=== PATIENT | female | born 1935 | race Caucasian/White ===

== ENCOUNTER 2016-05-13 11:55 | Emergency (ER) | payer OTHER, MEDICARE ==
[2016-05-13 12:23] VITALS: BP 145/49
--- NOTE | 2016-05-13 12:54 | UC ---
Cardiac HPI - HPI Summary HPI Summary: CHEST PAIN X 3 DAYS, PAIN IS ON THE LEFT SIDE, NO RADIATION, INCREASE PAIN WITH MOVEMENT, BETTER WITH REST, NO SOB, NO COUGH, NO FEVER, NO CHILLS NO DIAPHORESIS - History of Current Complaint Chief Complaint: UCChestPain Stated Complaint: CHEST PAIN Time Seen by Provider: 05/13/16 11:56 Hx Obtained From: Patient Onset/Duration: Gradual Onset, Lasting Days - 3, Still Present Timing: Constant Initial Severity: Moderate Current Severity: Moderate Chest Pain Location: Left Anterior Character: Dull/Aching Aggravating: Exertion, Position, Movement Alleviating: Rest Associated Signs & Symptoms: Positive: Chest Pain. Negative: Vision Changes, Anxiety, Recent Stress, Headaches, Numbness, Tingling, Weakness, Dizziness, SOB , Swelling, Diaphoresis, Nausea/Vomiting, Cough - Allergy/Home Medications Allergies/Adverse Reactions: Allergies Allergy/AdvReac Type Severity Reaction Status Date / Time Sulfa Antibiotics Allergy See Comment Verified 05/13/16 12:23 Troleandomycin [From Harry] Allergy Hives Verified 05/13/16 12:23 PMH/Surg Hx/FS Hx/Imm Hx Endocrine History Of: Denies: Diabetes, Thyroid Disease Cardiovascular History Of: Reports: Cardiac Disorders - 3 stents Denies: Hypertension Respiratory History Of: Denies: COPD, Asthma GI/ History Of: Denies: Ulcer - Surgical History Surgical History: Yes Surgery Procedure, Year, and Place: cataract, broken hip 2014, cardiac - Family History Known Family History: Positive: Hypertension Negative: Diabetes - Social History Alcohol Use: None Substance Use Type: None Smoking Status (MU): Never Smoked Tobacco Review of Systems Constitutional: Negative Skin: Negative Eyes: Negative ENT: Negative Respiratory: Negative Cardiovascular: Chest Pain Gastrointestinal: Negative All Other Systems Reviewed And Are Negative: Yes Physical Exam Triage Information Reviewed: Yes Appearance: Well-Appearing, No Pain Distress, Well-Nourished Vital Signs: Initial Vital Signs Temp 100.4 F 05/13/16 12:12 Pulse 57 05/13/16 12:12 Resp 24 05/13/16 12:12 BP 145/49 05/13/16 12:12 Pulse Ox 100 05/13/16 12:12 Vital Signs Reviewed: Yes Eye Exam: Normal Eyes: Positive: Conjunctiva Clear ENT: Positive: Normal ENT inspection, Hearing grossly normal, Pharynx normal Neck exam: Normal Neck: Positive: Supple, Nontender, No Lymphadenopathy Respiratory: Positive: Lungs clear, Normal breath sounds, No respiratory distress, No accessory muscle use Cardiovascular: Positive: RRR, No Murmur, Other: - + CHEST TENDERNESS ANTERIOR CHEST WALL INCRASE PAIN WITH TWISTING - Clinical Impression Provider Diagnoses: COSTOCHONDRITIS Discharge - Discharge Plan Condition: Stable Disposition: HOME Patient Education Materials: Costochondritis (ED) Referrals: Aditi HERRERA,Lanre Lagunas [Primary Care Provider] - 3 Days Additional Instructions: PLEASE GO TO THE EMERGENCY DEPARTMENT IF YOU HAVE CHEST PAIN AT ANYTIME
== END 2016-05-13 12:55 | disposition home or self-care (01) ==
LOC: UCCORT 11:55
DX: M94.0 Chondrocostal junction syndrome [Tietze] (principal); Z98.61 Coronary angioplasty status; Z98.49 Cataract extraction status, unspecified eye; Z88.1 Allergy status to other antibiotic agents; Z88.2 Allergy status to sulfonamides
CPT/HCPCS: 93005; 99212; G0463

== ENCOUNTER 2016-12-23 15:49 | Emergency (ER) | payer MEDICARE, OTHER ==
[2016-12-23 16:43] VITALS: BP 136/54
--- NOTE | 2016-12-23 16:54 | UC ---
Complaint Female HPI - HPI Summary HPI Summary: URINARY FREQUENCY AND BURNING X 1 DAY NO FEVER, NO CHILLS, NO FLANK PAIN - History Of Current Complaint Chief Complaint: UCGU Stated Complaint: URINARY Time Seen by Provider: 12/23/16 16:49 Hx Obtained From: Patient Hx Last Menstrual Period: n/a ?: No Onset/Duration: Gradual Onset, Lasting Days - 2, Still Present Timing: Constant Severity Initially: Moderate Severity Currently: Moderate Character: Burning Aggravating Factor(s): Urination Alleviating Factor(s): Nothing Associated Signs And Symptoms: Negative: Fever, Back Pain, Vaginal Bleeding/ Discharge, Vaginal Discharge, Nausea, Vomiting(# Of Episodes =), Genital Swelling, Genital Blisters, Retained Foregin Body (Specify) Related Hx: Similar Episode/Dx as: - UTIS - Allergies/Home Medications Allergies/Adverse Reactions: Allergies Allergy/AdvReac Type Severity Reaction Status Date / Time Sulfa Antibiotics Allergy See Comment Verified 05/13/16 12:23 Troleandomycin [From Harry] Allergy Hives Verified 05/13/16 12:23 PMH/Surg Hx/FS Hx/Imm Hx Cardiovascular History: Cardiac Disease - Surgical History Surgical History: Yes Surgery Procedure, Year, and Place: cataract, broken hip 2014, cardiac - Family History Known Family History: Positive: Hypertension Negative: Diabetes - Social History Alcohol Use: None Substance Use Type: None Smoking Status (MU): Never Smoked Tobacco - Immunization History Most Recent Influenza Vaccination: no Review of Systems Constitutional: Negative Skin: Negative Eyes: Negative ENT: Negative Respiratory: Negative Genitourinary: Dysuria, Frequency, Urgency Is Patient Immunocompromised?: No All Other Systems Reviewed And Are Negative: Yes Physical Exam Triage Information Reviewed: Yes Appearance: Well-Appearing, No Pain Distress, Well-Nourished Vital Signs: Initial Vital Signs Temp 98.5 F 12/23/16 16:37 Pulse 66 12/23/16 16:37 Resp 17 12/23/16 16:37 BP 136/54 12/23/16 16:37 Pulse Ox 97 12/23/16 16:37 Vital Signs Reviewed: Yes Eyes: Positive: Conjunctiva Clear ENT: Positive: Normal ENT inspection, Hearing grossly normal, Pharynx normal Neck exam: Normal Neck: Positive: Supple, Nontender, No Lymphadenopathy Respiratory: Positive: Chest non-tender, Lungs clear, Normal breath sounds Cardiovascular Exam: Normal Cardiovascular: Positive: RRR, No Murmur, Pulses Normal Abdomen Description: Positive: Nontender, Soft. Negative: CVA Tenderness (R), CVA Tenderness (L), Distended, Guarding Bowel Sounds: Positive: Present Skin Exam: Normal Complaint Female Dx - Differential Dx/Diagnosis Provider Diagnoses: UTI Discharge - Discharge Plan Condition: Stable Disposition: HOME Prescriptions: Ciprofloxacin HCl [Cipro 250 MG TAB] 250 mg PO BID #14 tab Patient Education Materials: Urinary Traction Infection in Older Adults (ED) Referrals: Aditi HERRERA,Lanre ACa [Primary Care Provider] - 7 Days
== END 2016-12-23 17:27 | disposition home or self-care (01) ==
LOC: UCCORT 15:49
DX: N39.0 Urinary tract infection, site not specified (principal); Z88.2 Allergy status to sulfonamides; I51.9 Heart disease, unspecified; Z98.49 Cataract extraction status, unspecified eye
CPT/HCPCS: 81003; 87086; 99212; G0463

== ENCOUNTER 2017-03-17 14:06 | Emergency (ER) | payer MEDICARE, OTHER ==
[2017-03-17 14:38] VITALS: BP 144/51
--- NOTE | 2017-03-17 15:18 | UC ---
Lower Extremity/Ankle HPI - HPI Summary HPI Summary: 81 y/o female presents to the urgent care c/o left ankle pain s/p stepping in the wrong way on her front stairs and twisting her ankle about 3 days ago. Pt states pain is dull, 2/10 at rest and sharp 8/10 with movement. Associated with mild swelling in the lateral malleolus She can bear weight. Pt denies numbness or tingling, SOB, chest pain, abdominal pain, N/V/D. - History of Current Complaint Chief Complaint: UCLowerExtremity Stated Complaint: LEFT ANKLE INJURY Time Seen by Provider: 03/17/17 15:10 Hx Obtained From: Patient ?: No Onset/Duration: Sudden Onset, Lasting Days - 3 days, Still Present Severity Initially: Mild Severity Currently: Moderate Pain Intensity: 8 - w/ movement Pain Scale Used: 0-10 Numeric Aggravating Factor(s): Ambulation Alleviating Factor(s): Rest Able to Bear Weight: Yes - Risk Factors Gout Risk Factors: Negative, Age Over 40, Hypertension, Hyperlipidemia DVT Risk Factors: Negative Septic Arthritis Risk Factor: Negative - Allergies/Home Medications Allergies/Adverse Reactions: Allergies Allergy/AdvReac Type Severity Reaction Status Date / Time Sulfa Antibiotics Allergy See Comment Verified 05/13/16 12:23 Troleandomycin [From Harry] Allergy Hives Verified 05/13/16 12:23 Home Medications: Home Medications Aspirin [Aspirin 81 MG TAB] 03/17/17 [History] Atenolol TAB* [Tenormin TAB* 50 MG] 50 mg PO DAILY 03/17/17 [History Confirmed 03/17/17] Calcium/Vitamin D TAB 250/125* [Oscal D TAB 250/125*] 03/17/17 [History] Cholecalciferol [Vitamin D3] 2,000 unit PO 03/17/17 [History] Hydrochlorothiazide TAB* [Hydrodiuril TAB*] 25 mg PO DAILY 03/17/17 [History Confirmed 03/17/17] Levothyroxine TAB* [Synthroid 25 MCG TAB*] 03/17/17 [History] Losartan TAB* [Cozaar TAB*] 25 mg PO DAILY 03/17/17 [History Confirmed 03/17/17] Nitroglycerin [Nitro-Dur] 03/17/17 [History Confirmed 03/17/17] Omeprazole CAP* [Prilosec CAP* 20 MG] 03/17/17 [History] Simvastatin (NF) [Zocor (NF)] 80 mg PO 1700 03/17/17 [History Confirmed 03/17/17 ] PMH/Surg Hx/FS Hx/Imm Hx Previously Healthy: Yes Endocrine History: Hypothyroidism, Dyslipidemia Cardiovascular History: Cardiac Disease, Hypertension - Surgical History Surgical History: Yes Surgery Procedure, Year, and Place: HIP FX, NOSE FX. CATARACTS BILAT, APPY, HYSTERECTOMY - Family History Known Family History: Positive: Cardiac Disease, Hypertension - Social History Occupation: Retired Lives: With Family Alcohol Use: None Substance Use Type: None Smoking Status (MU): Never Smoked Tobacco - Immunization History Most Recent Influenza Vaccination: NOT CURRENT Most Recent Pneumonia Vaccination: 2016 Review of Systems Constitutional: Negative Skin: Negative Eyes: Negative, Diplopia ENT: Negative Respiratory: Negative Cardiovascular: Negative Gastrointestinal: Negative Genitourinary: Negative Motor: Decreased ROM - left ankle Musculoskeletal: Decreased ROM, Other: - Left ankle pain Neurological: Negative Psychological: Negative Is Patient Immunocompromised?: No All Other Systems Reviewed And Are Negative: Yes Physical Exam Triage Information Reviewed: Yes Vital Signs: Initial Vital Signs Temp 97.2 F 03/17/17 14:33 Pulse 65 03/17/17 14:33 Resp 16 03/17/17 14:33 BP 144/51 03/17/17 14:33 Pulse Ox 98 03/17/17 14:33 - Additional Comments Vital Signs Reviewed: Yes General: well developed, well nourished thin old female, sitting in the examining table w/o any apparent distress, Pt wears a cane Eyes: Positive: Conjunctiva Clear - PERRLA, EOMI, ENT: Positive: Normal ENT inspection, Hearing grossly normal, Pharynx normal, TMs normal Neck: Positive: Supple, Nontender, No Lymphadenopathy Respiratory: Positive: Chest non-tender, Lungs clear, Normal breath sounds, No respiratory distress Cardiovascular: Positive: RRR, No Murmur, Pulses Normal, Brisk Capillary Refill Abdomen Description: Positive: Nontender, No Organomegaly, Soft. Negative: CVA Tenderness (R), CVA Tenderness (L) Bowel Sounds: Positive: Present Musculoskeletal: - Ankle: Pt is able to bear weight and ambulate w/ limping.and help of a cane The L ankle is without obvious asymmetry or deformity when compared to the R ankle. Decreased ROM due to pain. Moderate swelling at the lateral malleolus, with tenderness to palpation. No ecchymosis or bruising observed. No Tenderness to palpation over the medial malleolus , no swelling observed. Point tenderness over the heel. Talar tilt test is negative for ligament laxity to valgus or varus stress. Negative anterior drawer. Peroneal nerve is intact with strong eversion and plantar flexion. Positive sensation over the LF foot and LF ankle, positive pulses, capillary refill intact Neurological Exam: Normal Psychological Exam: Normal Skin: warm and dry Lower Extremity Course/Dx - Course Course Of Treatment: 81 y/o female presents to the urgent care c/o left ankle pain s/p stepping in the wrong way on her front stairs and twisting her ankle about 3 days ago. Pt states pain is dull, 2/10 at rest and sharp 8/10 with movement. Associated with mild swelling in the lateral maleollus. She can bear weight. Pt denies numbness or tingling, SOB, chest pain, abdominal pain, N/V/D. Hx obtained.Rt ankle X-ray ordered, Mild to moderate osteoarthritis of talotibial joint. Pt most likely with a RT ankle Sprain. Pt immobilized with gel ankle splint and bulmaro bandage.Pt has a walker at home to avoid weight bearing , Rx tylenol PO to decrease swelling and pain. Pt advised RICE, take Tylenol PO for pain and to f/u with PCP on orthopedic Dr Hicks in 1 week if not improvement of symptoms for further treatment. Pt understood and agreed and left the clinic in a wheelchair, hemodynamically stable , A&OX3. - Differential Dx/Diagnosis Differential Diagnosis/HQI/PQRI: Arthritis, Fracture (Closed), Phlebitis, Sprain , Strain, Tendonitis Provider Diagnoses: 1- Left ankle pain s/p injury. 2- Left ankle osteoarthritis. 3- Left heel spurs. 4- Uncontrolled HTN Discharge - Discharge Plan Condition: Stable Disposition: HOME Prescriptions: Acetaminophen TAB* [Tylenol TAB*] 325 mg PO Q4H PRN #20 tab PRN Reason: Pain Patient Education Materials: Ankle Sprain (ED), Low Sodium Diet (ED) Referrals: [facility] [[facility]] - 1 Week Abdifatah Hicks MD [Medical Doctor] - 1 Week Additional Instructions: 1-Please take medications as directed to alleviate pain and swelling. 2-Please apply ice, keep your ankle immobilized with the gel splint. Avoid weight bearing using the walker at home 3- Please f/u with Orthopedic Dr Hicks or your PCP in 1 week is not improvement of symptoms for further evaluation and treatment. 4- Your BP is elevated today. please decrease salt in your diet, monitor BP and if it continues to be elevated please f/u with your PCP for further management
--- NOTE | 2017-03-17 15:39 | RAD ---
INDICATION: Left ankle injury COMPARISON: None TECHNIQUE: AP, lateral, and oblique views were obtained. FINDINGS: There are no acute bony findings. There is osteoarthritic change about the ankle mortise with joint space narrowing and marginal osteophyte formation. There are small heel spurs. Soft tissues are normal. IMPRESSION: MILD TO MODERATE OSTEOARTHRITIS TIBIOTALAR JOINT
== END 2017-03-17 16:17 | disposition home or self-care (01) ==
LOC: MERGE 14:06 → UCCORT 14:06
DX: M25.572 Pain in left ankle and joints of left foot (principal); M19.072 Primary osteoarthritis, left ankle and foot; M77.32 Calcaneal spur, left foot; I10 Essential (primary) hypertension; E03.9 Hypothyroidism, unspecified; E78.5 Hyperlipidemia, unspecified; Z79.82 Long term (current) use of aspirin; Z88.2 Allergy status to sulfonamides
CPT/HCPCS: 99203; G0463

== ENCOUNTER 2017-07-24 16:07 | Emergency (ER) | payer MEDICARE ==
[2017-07-24] MEDS ORDERED: Aspirin 81 mg CHEW TAB* 81 MG TAB.CHEW PO ONE (18:13)
[2017-07-24 18:47] VITALS: BP 148/60
--- NOTE | 2017-07-24 20:56 | UC ---
Meeta Pascual Gabriel, scribed for Veronica Urrutia MD on 07/24/17 at 1804 . Neck Pain HPI - HPI Summary HPI Summary: This patient is a 82 year old M presenting to [facility] with a chief complaint of right sided neck pain that began yesterday. She states today the pain began radiating into her right rib cage. The patient rates the pain 10/10 in severity. Symptoms aggravated by movement and deep breaths. She believes it may be due to sleeping on 3 pillows which she does to help her sinuses drain. She states she has had similar pain diagnosed as chest wall pain in the past. Not sure if this is the same. Present most of the time, aggravated by movement and deep breath. No rash. No sob. No recent fever / chills. - History of Current Complaint Chief Complaint: UCUpperExtremity Stated Complaint: NECK STRAIN Hx Obtained From: Patient Hx Last Menstrual Period: n/a ?: No Onset/Duration Of Injury/Symptoms: Days Mechanism Of Injury: No Known Trauma Timing: Constant Onset/Duration: Lasting Days, Still Present Severity: Severe Pain Intensity: 10 Pain Scale Used: 0-10 Numeric Location: Discrete At: - right side Aggravating Factors: Movement, Other: - deep breaths Associated Signs & Symptoms: Negative: Fever Related History: Similar Episode/Dx As: - chest wall pain - Allergies/Home Medications Allergies/Adverse Reactions: Allergies Allergy/AdvReac Type Severity Reaction Status Date / Time Sulfa (Sulfonamide Allergy See Comment Verified 07/24/17 19:32 Antibiotics) troleandomycin Allergy Hives Verified 07/24/17 19:32 PMH/Surg Hx/FS Hx/Imm Hx - Additional Past Medical History Additional PMH: hearing aids Cardiovascular History: Cardiac Disease - has 3 stents, Hypertension, Other Other Cardiovascular History: HLD - Surgical History Surgical History: Yes Surgery Procedure, Year, and Place: HIP FX, NOSE FX. CATARACTS BILAT, APPY, HYSTERECTOMY - Family History Known Family History: Positive: Cardiac Disease, Hypertension Negative: Diabetes - Social History Alcohol Use: None Substance Use Type: None Smoking Status (MU): Never Smoked Tobacco - Immunization History Most Recent Influenza Vaccination: NOT CURRENT Most Recent Pneumonia Vaccination: 2016 Review Of Systems Constitutional: Positive: Negative - fever Musculoskeletal: Positive: Other: - right sided neck pain that radiates into her ribs All Other Systems Reviewed And Are Negative: Yes Physical Exam Triage Information Reviewed: Yes Appearance: Well-Nourished - sitting up. Conversing easily and appropriately. Vital Signs: Initial Vital Signs Temp 97.9 F 07/24/17 16:30 Pulse 62 07/24/17 16:30 Resp 18 07/24/17 16:30 BP 144/45 07/24/17 16:30 Pulse Ox 97 07/24/17 16:30 Vital Signs Reviewed: Yes Eye Exam: Normal - grossly normal + arcus seniles ENT Exam: Normal Neck exam: Other - tender R lat neck, without point bony tenderness. + ax n. sensation present bilat Respiratory Exam: Other - Tender midsternum - radiates to R ant and lat chest. Also radiates to L ant chest. No crepitus, no rash visible or reported. Respiratory: Positive: Lungs clear, Normal breath sounds, No respiratory distress, No accessory muscle use Cardiovascular Exam: Normal - HR regular, correlates with radial pulse. + systolic M 1/6. Abdominal Exam: Normal Abdomen Description: Positive: Nontender Musculoskeletal Exam: Normal - BLE + venous insuff changes. No unilateral edema. Neurological Exam: Normal - grossly nonfocal. Psychological Exam: Normal - nondiaphoretic Skin Exam: Normal Diagnostics - EKG Cardiac Rate: NL - at 66 BPM Cardiac Rhythm: Sinus: Normal - MI 209, QTc of 453 , Other Rhythm: Normal - no significant change compared to 05/13/16 Neck Pain Course/Dx - Course Course Of Treatment: While indeed this could be musc / skel related, given the diffuse nature of the discomfort, absence of clear inciting injury or other issue, I can not clinically rule out a more serious problem (ex cardiac, pulmonary). Ms. Yi has a history of 3 stents, diagnoses prior to cardiac event. As such, she does not have a known hx of angina. Consider musc skel d/o , costochondritis, pleuritis, bronchitis, cardiac, other pulmonary. I recommend transfer to the ED for further evaluation and management. Ms. Yi carefully considered this, and after much consideration, she agrees to go to the ED. Does not want to go via EMS, despite offered and encouraged EMS. Did not take asa today, she was given 324mg po x 1 here in [facility]. Of note - Ms. Yi gave me verbal permission to speak with her daughter, Dorita Georges, if she calls. Questions as posed answered to the best of my ability. - Differential Dx/Diagnosis Provider Diagnoses: neck pain. chest pain - Physician Notification/Consults Discussed Patient Care With: Yogesh Neves Time Discussed With Above Provider: 18:44 Instructed by Provider To: Other - I informed JOSH Hassan of the patients case and informed him she will be being driving herself to the ED. Discharge - Sign-Out/Discharge Documenting (check all that apply): Discharge/Admit/Transfer - Discharge Plan Condition: Stable Disposition: ADMITTED TO [facility] Referrals: Non Staff,Doctor [Primary Care Provider] - Additional Instructions: Please go to the Emergency Department. Call [phone] en route if any problems. You received 324mg aspirin here. - Billing Disposition and Condition Condition: STABLE Disposition: [facility] [place] The documentation as recorded by the Meeta cartwright Gabriel accurately reflects the service I personally performed and the decisions made by me, Veronica Urrutia MD.
== END 2017-07-24 18:59 | disposition short-term general hospital (02) ==
LOC: UCEAST 16:07
DX: M54.2 Cervicalgia (principal); R07.89 Other chest pain; I10 Essential (primary) hypertension; Z95.5 Presence of coronary angioplasty implant and graft; E78.5 Hyperlipidemia, unspecified; Z88.1 Allergy status to other antibiotic agents; Z88.2 Allergy status to sulfonamides
CPT/HCPCS: 93005; 99212; A9270-GY; G0463

== ENCOUNTER 2017-07-24 19:17 | Observation (INO) | payer MEDICARE ==
[2017-07-24] MEDS ORDERED: Aspirin 81 mg CHEW TAB* 81 MG TAB.CHEW PO ONE (20:35)
[2017-07-24 20:51] LABS: ABS Basophils 0.1 10^3/ul (0-0.2); ABS Eosinophils 0.1 10^3/ul (0-0.6); ABS Lymphocytes 1.9 10^3/ul (1.0-4.8); ABS Monocytes 0.7 10^3/ul (0-0.8); ABS Neutrophils 7.6 10^3/ul (1.5-7.7); ABS Nucleated RBC 0 10^3/ul; Eosinophil % 1.2 % (0-6); Hematocrit 34 % (35-47); Hemoglobin 11.9 g/dl (12.0-16.0); Lymphocyte % 18.3 % (25-47); Mean Corpuscular HGB Conc 35 g/dl (31-36); Mean Corpuscular Hemoglobin 29 pg (27-31); Mean Corpuscular Volume 84 fL (80-97); Mean Platelet Volume 7.1 um3 (7.4-10.4); Nucleated Red Blood Cells % 0; Platelet Count 251 10^3/ul (150-450); Red Blood Count 4.06 10^6/ul (4.0-5.4); Red Cell Distribution Width 14 % (10.5-15); White Blood Count 10.4 10^3/ul (3.5-10.8)
[2017-07-24 20:57] LABS: INR 0.86 (0.77-1.02)
[2017-07-24 21:07] LABS: EGFR Non-African American 43.4 (>60)
--- NOTE | 2017-07-24 21:51 | RAD ---
Indication: Chest pain. Single frontal view of the chest performed at 2046 hours was reviewed. Comparison is made with previous exam dated June 08, 2008. No mediastinal shift is noted. Heart is of normal size and configuration. Lung mckinley appear clear. IMPRESSION: NO ACTIVE CARDIOPULMONARY DISEASE IS NOTED.
[2017-07-24] MEDS ORDERED: Ondansetron INJ* 2 MG/ML VIAL IV PRN (22:35)
[2017-07-24] MEDS ORDERED: Acetaminophen TAB* 325 MG PO PRN (22:35)
[2017-07-24] MEDS ORDERED: Morphine VIAL* 4 MG/ML VIAL (1 ml vial) IV PRN (22:35)
[2017-07-24] MEDS ORDERED: NS 0.9% 1000 ML* 1,000 ML IV SCH (22:45)
[2017-07-24] MEDS ORDERED: Ondansetron ODT TAB* 4 MG PO PRN (23:05)
--- NOTE | 2017-07-25 00:11 | HP ---
H&P (Free Text) History and Physical: PCP: Lilly Aburto NP Date/Time: 07/24/2017 2230 CC: chest pain HPI: Mrs Yi is an 82YO female HX CAD/stent x3, HTN, HLD, hypothyroidism, & GERD who presents reporting onset of continuous moderate sharp R inframammary pain radiating into the R neck, but not either upper extremity or the back. Pain is exacerbated by exertion and movement. There is no SOB, N/V, palpitations, light-headedness, cough, congestion, F/C, sweats, diarrhea, or other issues. She presented to [facility] where she received 324mg aspirin and was referred to [facility]. She was allowed to drive herself. PMedHx CAD/stent x3 HTN HLD hypothyroidism GERD Ambulatory Orders Aspirin EC TAB* [Ecotrin EC Low Dose 81 MG*] 81 mg PO DAILY 07/24/17 Atenolol TAB* [Tenormin TAB* 50 MG] 50 mg PO DAILY 07/24/17 Calcium/Vitamin D TAB 250/125* [Oscal D TAB 250/125*] 250 mg PO BID 07/24/17 Cholecalciferol TAB* [Vitamin D TAB*] 2,000 units PO DAILY 07/24/17 Cranberry Fruit [Cranberry] 400 mg PO DAILY 07/24/17 Hydrochlorothiazide TAB* [Hydrodiuril TAB*] 25 mg PO DAILY 07/24/17 Levothyroxine TAB* [Synthroid TAB*] 50 mcg PO DAILY 07/24/17 Losartan TAB* [Cozaar TAB*] 100 mg PO DAILY 07/24/17 Nitroglycerin TAB 0.4 MG* 0.4 mg SL Q5M PRN 07/24/17 Omeprazole CAP* [Prilosec CAP* 20 MG] 40 mg PO DAILY 07/24/17 Simvastatin (NF) [Zocor (NF)] 40 mg PO DAILY 07/24/17 amLODIPine TAB* [Norvasc 5 mg TAB*] 10 mg PO DAILY 07/24/17 Allergies Sulfa (Sulfonamide Antibiotics) Allergy (Verified 07/24/17 19:32) See Comment hyperventilates troleandomycin Allergy (Verified 07/24/17 19:32) Hives PSurgHx L EVAN 2nd FX EGD/C-scope 06/2017 appendectomy cataract extraction SocHx: no tobacco, alcohol, or recreational drugs; lives with her daughter; 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; 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 FamHx: son: SHEELA, Parkinsonism, DM2 ROS: as above, otherwise reviewed and all were negative vitals: Vital Signs Temp 36.6 C 07/24/17 23:17 Pulse 71 07/24/17 23:17 Resp 16 07/24/17 23:17 BP 137/66 07/24/17 23:17 Pulse Ox 97 07/24/17 23:17 Intake & Output 07/24/17 07/24/17 07/25/17 11:59 23:59 11:59 Weight 64.41 kg Constitutional: NAD, normally developed, well-nourished elderly white female HEENM: atraumatic; sclera/conjunctiva: anicteric/clear; hearing: clinically intact; oropharynx: clear, mucosa moist Neck: soft tissue: non-tender to palpation, no rash/erythema/warmth/induration; thyroid: non-tender, normal Pulmonary: clear to auscultation bilaterally, good aeration, no accessory muscle use CV: RR/RR, normal S1S2, no carotid bruit, no jugular venous distention, 2+ B DP/ PT, no edema Abdominal: soft, non-distended, non-tender, no rebound/guarding/rigidity, normoactive bowel sounds, no hepatosplenomegaly or masses, no costovertebral angle tenderness Musculoskeletal: general: grossly intact w/o tenderness to palpation Integumental: normal appearance and texture of exposed skin Psychiatric orientation: AA&O to PPS affect: calm mood: cooperative eye contact: good content: reliable responses: timely insight: good Testing: Lab Results 07/24/17 07/24/17 07/24/17 Range/Units 20:40 20:40 20:40 WBC 10.4 (3.5-10.8) 10^3/ul RBC 4.06 (4.0-5.4) 10^6/ul Hgb 11.9 L (12.0-16.0) g/dl Hct 34 L (35-47) % MCV 84 (80-97) fL MCH 29 (27-31) pg MCHC 35 (31-36) g/dl RDW 14 (10.5-15) % Plt Count 251 (150-450) 10^3/ul MPV 7.1 L (7.4-10.4) um3 Neut % (Auto) 72.7 (38-83) % Lymph % (Auto) 18.3 L (25-47) % [place] % (Auto) 7.0 (0-7) % Eos % (Auto) 1.2 (0-6) % Baso % (Auto) 0.8 (0-2) % Absolute Neuts (auto) 7.6 (1.5-7.7) 10^3/ul Absolute Lymphs (auto) 1.9 (1.0-4.8) 10^3/ul Absolute Monos (auto) 0.7 (0-0.8) 10^3/ul Absolute Eos (auto) 0.1 (0-0.6) 10^3/ul Absolute Basos (auto) 0.1 (0-0.2) 10^3/ul Absolute Nucleated RBC 0 10^3/ul Nucleated RBC % 0 INR (Anticoag Therapy) (0.77-1.02) Sodium 139 (139-145) mmol/L Potassium 3.4 L (3.5-5.0) mmol/L Chloride 102 (101-111) mmol/L Carbon Dioxide 27 (22-32) mmol/L Anion Gap 10 (2-11) mmol/L BUN 30 H (6-24) mg/dL Creatinine 1.19 H (0.51-0.95) mg/dL Est GFR ( Amer) 55.8 (>60) Est GFR (Non-Af Amer) 43.4 (>60) BUN/Creatinine Ratio 25.2 H (8-20) Glucose 123 H (70-100) mg/dL Lactic Acid (0.5-2.0) mmol/L Calcium 9.7 (8.6-10.3) mg/dL Total Bilirubin 0.30 (0.2-1.0) mg/dL AST 10 L (13-39) U/L ALT 9 (7-52) U/L Alkaline Phosphatase 84 (34-104) U/L Troponin I 0.01 (<0.04) ng/mL B-Natriuretic Peptide 39 ( - 100) pg/mL Total Protein 6.8 (6.4-8.9) g/dL Albumin 4.1 (3.2-5.2) g/dL Globulin 2.7 (2-4) g/dL Albumin/Globulin Ratio 1.5 (1-3) 07/24/17 07/24/17 Range/Units 20:40 20:40 WBC (3.5-10.8) 10^3/ul RBC (4.0-5.4) 10^6/ul Hgb (12.0-16.0) g/dl Hct (35-47) % MCV (80-97) fL MCH (27-31) pg MCHC (31-36) g/dl RDW (10.5-15) % Plt Count (150-450) 10^3/ul MPV (7.4-10.4) um3 Neut % (Auto) (38-83) % Lymph % (Auto) (25-47) % [place] % (Auto) (0-7) % Eos % (Auto) (0-6) % Baso % (Auto) (0-2) % Absolute Neuts (auto) (1.5-7.7) 10^3/ul Absolute Lymphs (auto) (1.0-4.8) 10^3/ul Absolute Monos (auto) (0-0.8) 10^3/ul Absolute Eos (auto) (0-0.6) 10^3/ul Absolute Basos (auto) (0-0.2) 10^3/ul Absolute Nucleated RBC 10^3/ul Nucleated RBC % INR (Anticoag Therapy) 0.86 (0.77-1.02) Sodium (139-145) mmol/L Potassium (3.5-5.0) mmol/L Chloride (101-111) mmol/L Carbon Dioxide (22-32) mmol/L Anion Gap (2-11) mmol/L BUN (6-24) mg/dL Creatinine (0.51-0.95) mg/dL Est GFR ( Amer) (>60) Est GFR (Non-Af Amer) (>60) BUN/Creatinine Ratio (8-20) Glucose (70-100) mg/dL Lactic Acid 1.0 (0.5-2.0) mmol/L Calcium (8.6-10.3) mg/dL Total Bilirubin (0.2-1.0) mg/dL AST (13-39) U/L ALT (7-52) U/L Alkaline Phosphatase (34-104) U/L Troponin I (<0.04) ng/mL B-Natriuretic Peptide ( - 100) pg/mL Total Protein (6.4-8.9) g/dL Albumin (3.2-5.2) g/dL Globulin (2-4) g/dL Albumin/Globulin Ratio (1-3) ECG, personally reviewed: NSR rate 66, mild ST depression V4-6 CXR, personally reviewed: IMPRESSION: NO ACTIVE CARDIOPULMONARY DISEASE IS NOTED. Impression: 82F HX CAD/stent x3, HTN, HLD, hypothyroidism, & GERD presenting with atypical chest pain for r/o ACS DIAGNOSIS & PLAN Primary chest pain for ACS : HX CAD/stent x3 : telemetry : trend troponin : supplemental oxygen : aspirin given at [facility] per report : consider cardiology consult pending above results : supportive care Secondary HTN : continue HCTZ, losartan, atenolol, & amlodipine HLD : continue simvastatin hypothyroidism : continue levothyroxine GERD omeprazole Admission Rational: observation for r/o ACS DVTp: heparin SQ Code Status: full HCP: daughter
[2017-07-25] MEDS: Heparin VIAL(*) 5000 UNITS/ML VIAL (FIVE THOUSAND) SUBCUT SCH ×2 (05:21→12:57)
[2017-07-25] MEDS ORDERED: Omeprazole CAP* 20 MG PO SCH ×2 (06:00→09:00)
[2017-07-25] MEDS ORDERED: Levothyroxine TAB* 50 MCG TAB PO SCH (06:00)
[2017-07-25 06:26] LABS: EGFR Non-African American 50.2 (>60)
[2017-07-25] MEDS ORDERED: Atenolol TAB* 50 MG PO SCH (09:00)
[2017-07-25] MEDS ORDERED: Aspirin EC TAB* 81 MG TAB.EC PO SCH ×2 (09:00)
[2017-07-25] MEDS ORDERED: Losartan TAB* 25 MG PO SCH (09:00)
[2017-07-25] MEDS ORDERED: Atorvastatin* 20 MG TAB PO SCH (09:00)
[2017-07-25] MEDS ORDERED: amLODIPine TAB* 5 MG PO SCH (09:00)
[2017-07-25] MEDS ORDERED: Hydrochlorothiazide TAB* 25 MG PO SCH (09:00)
[2017-07-25] MEDS ORDERED: Docusate CAP* 100 MG PO SCH (09:00)
--- NOTE | 2017-07-25 10:25 | ED ---
Anthony Pascual Angela, scribed for Reinaldo Velásquez on 07/24/17 at 2036 . HPI Chest Pain - HPI Summary HPI Summary: This pt is a 82 y/o female presenting to [facility] referred from [facility] c/o chest pain radiating to the right side of her neck and right side of her rib cage since yesterday. Pt reports that her pain is aggravated with exertion and movement. Denies rash, swelling in LE, SOB, nausea. Pt was given a full dose of aspirin at Urgent Care. Denies any hx of OK. PMHx includes 3 cardiac stents (last one in 2007), HTN, high cholesterol. - History of Current Complaint Chief Complaint: EDChestPainROMI Time Seen by Provider: 07/24/17 20:29 Hx Obtained From: Patient Hx Last Menstrual Period: n/a Onset/Duration: Started Days Ago - 2, Still Present Timing: Lasting Days - 2 Current Severity: Moderate Pain Intensity: 7 Pain Scale Used: 0-10 Numeric Chest Pain Location: Right Anterior Chest Pain Radiates: Yes Chest Pain Radiates To:: Neck - right sided, Other - right sided ribs Aggravating Factor(s): Exertion, Movement Alleviating Factor(s): Nothing Associated Signs and Symptoms: Positive: Chest Pain. Negative: Shortness of Breath, Fever, Chills, Nausea, Other: - rash - Allergy/Home Medications Allergies/Adverse Reactions: Allergies Allergy/AdvReac Type Severity Reaction Status Date / Time Sulfa (Sulfonamide Allergy See Comment Verified 07/24/17 19:32 Antibiotics) troleandomycin Allergy Hives Verified 07/24/17 19:32 Home Medications: Home Medications Aspirin EC TAB* [Ecotrin EC Low Dose 81 MG*] 81 mg PO DAILY 07/24/17 [History Confirmed 07/24/17] Atenolol TAB* [Tenormin TAB* 50 MG] 50 mg PO DAILY 07/24/17 [History Confirmed 07/24/17] Calcium/Vitamin D TAB 250/125* [Oscal D TAB 250/125*] 250 mg PO BID 07/24/17 [ History Confirmed 07/24/17] Cholecalciferol TAB* [Vitamin D TAB*] 2,000 units PO DAILY 07/24/17 [History Confirmed 07/24/17] Cranberry Fruit [Cranberry] 400 mg PO DAILY 07/24/17 [History Confirmed 07/24/17 ] Hydrochlorothiazide TAB* [Hydrodiuril TAB*] 25 mg PO DAILY 07/24/17 [History Confirmed 07/24/17] Levothyroxine TAB* [Synthroid TAB*] 50 mcg PO DAILY 07/24/17 [History Confirmed 07/24/17] Losartan TAB* [Cozaar TAB*] 100 mg PO DAILY 07/24/17 [History Confirmed 07/24/17 ] Nitroglycerin TAB 0.4 MG* 0.4 mg SL Q5M PRN 07/24/17 [History Confirmed 07/24/17 ] Omeprazole CAP* [Prilosec CAP* 20 MG] 40 mg PO DAILY 07/24/17 [History Confirmed 07/24/17] Simvastatin (NF) [Zocor (NF)] 40 mg PO DAILY 07/24/17 [History Confirmed ] amLODIPine TAB* [Norvasc 5 mg TAB*] 10 mg PO DAILY 07/24/17 [History Confirmed 07/24/17] PMH/Surg Hx/FS Hx/Imm Hx Endocrine/Hematology History: Denies: Hx Diabetes, Hx Thyroid Disease Cardiovascular History: Reports: Hx Hypertension Respiratory History: Denies: Hx Asthma, Hx Chronic Obstructive Pulmonary Disease (COPD) GI History: Denies: Hx Ulcer - Cancer History Cancer Type, Location and Year: areas of skin to face removed, benign - Surgical History Surgery Procedure, Year, and Place: HIP FX, NOSE FX. CATARACTS BILAT, APPY, HYSTERECTOMY Infectious Disease History: No Infectious Disease History: Denies: Hx Hepatitis, Hx Human Immunodeficiency Virus (HIV), History Other Infectious Disease, Traveled Outside the [place] in Last 30 Days - Family History Known Family History: Positive: Cardiac Disease, Hypertension Negative: Diabetes - Social History Alcohol Use: None Substance Use Type: Reports: None Smoking Status (MU): Never Smoked Tobacco Review of Systems Negative: Fever, Chills Positive: Chest Pain Negative: Shortness Of Breath Negative: Nausea Musculoskeletal: Other - right sided neck pain Negative: Edema - in LE Negative: Rash All Other Systems Reviewed And Are Negative: Yes Physical Exam - Summary Physical Exam Summary: Appearance: Well appearing, no pain distress Skin: warm, dry, reflects adequate perfusion Head/face: normal Eyes: EOMI, SUSANA ENT: normal Neck: supple, nontender Chest: Tenderness over the right chest Respiratory: CTA, breath sounds present Cardiovascular: RRR, pulses symmetrical Abdomen: nontender, soft Bowel: present Musculoskeletal: normal, strength/ROM intact Neuro: normal, sensory motor intact, A&Ox3 Triage Information Reviewed: Yes Vital Signs On Initial Exam: Initial Vitals Temp Pulse Resp BP Pulse Ox 97.0 F 66 16 135/53 97 07/24/17 19:25 07/24/17 19:25 07/24/17 19:25 07/24/17 19:25 07/24/17 19:25 Vital Signs Reviewed: Yes Diagnostics - Vital Signs Vital Signs Temp Pulse Resp BP Pulse Ox 07/24/17 20:31 63 18 164/78 07/24/17 20:05 21 164/78 07/24/17 20:04 21 07/24/17 19:25 97.0 F 66 16 135/53 97 - Laboratory Lab Results: Lab Results 07/24/17 07/24/17 07/24/17 Range/Units 20:40 20:40 20:40 WBC 10.4 (3.5-10.8) 10^3/ul RBC 4.06 (4.0-5.4) 10^6/ul Hgb 11.9 L (12.0-16.0) g/dl Hct 34 L (35-47) % MCV 84 (80-97) fL MCH 29 (27-31) pg MCHC 35 (31-36) g/dl RDW 14 (10.5-15) % Plt Count 251 (150-450) 10^3/ul MPV 7.1 L (7.4-10.4) um3 Neut % (Auto) 72.7 (38-83) % Lymph % (Auto) 18.3 L (25-47) % [place] % (Auto) 7.0 (0-7) % Eos % (Auto) 1.2 (0-6) % Baso % (Auto) 0.8 (0-2) % Absolute Neuts (auto) 7.6 (1.5-7.7) 10^3/ul Absolute Lymphs (auto) 1.9 (1.0-4.8) 10^3/ul Absolute Monos (auto) 0.7 (0-0.8) 10^3/ul Absolute Eos (auto) 0.1 (0-0.6) 10^3/ul Absolute Basos (auto) 0.1 (0-0.2) 10^3/ul Absolute Nucleated RBC 0 10^3/ul Nucleated RBC % 0 INR (Anticoag Therapy) (0.77-1.02) Sodium 139 (139-145) mmol/L Potassium 3.4 L (3.5-5.0) mmol/L Chloride 102 (101-111) mmol/L Carbon Dioxide 27 (22-32) mmol/L Anion Gap 10 (2-11) mmol/L BUN 30 H (6-24) mg/dL Creatinine 1.19 H (0.51-0.95) mg/dL Est GFR ( Amer) 55.8 (>60) Est GFR (Non-Af Amer) 43.4 (>60) BUN/Creatinine Ratio 25.2 H (8-20) Glucose 123 H (70-100) mg/dL Lactic Acid (0.5-2.0) mmol/L Calcium 9.7 (8.6-10.3) mg/dL Total Bilirubin 0.30 (0.2-1.0) mg/dL AST 10 L (13-39) U/L ALT 9 (7-52) U/L Alkaline Phosphatase 84 (34-104) U/L Troponin I 0.01 (<0.04) ng/mL B-Natriuretic Peptide 39 ( - 100) pg/mL Total Protein 6.8 (6.4-8.9) g/dL Albumin 4.1 (3.2-5.2) g/dL Globulin 2.7 (2-4) g/dL Albumin/Globulin Ratio 1.5 (1-3) 07/24/17 07/24/17 Range/Units 20:40 20:40 WBC (3.5-10.8) 10^3/ul RBC (4.0-5.4) 10^6/ul Hgb (12.0-16.0) g/dl Hct (35-47) % MCV (80-97) fL MCH (27-31) pg MCHC (31-36) g/dl RDW (10.5-15) % Plt Count (150-450) 10^3/ul MPV (7.4-10.4) um3 Neut % (Auto) (38-83) % Lymph % (Auto) (25-47) % [place] % (Auto) (0-7) % Eos % (Auto) (0-6) % Baso % (Auto) (0-2) % Absolute Neuts (auto) (1.5-7.7) 10^3/ul Absolute Lymphs (auto) (1.0-4.8) 10^3/ul Absolute Monos (auto) (0-0.8) 10^3/ul Absolute Eos (auto) (0-0.6) 10^3/ul Absolute Basos (auto) (0-0.2) 10^3/ul Absolute Nucleated RBC 10^3/ul Nucleated RBC % INR (Anticoag Therapy) 0.86 (0.77-1.02) Sodium (139-145) mmol/L Potassium (3.5-5.0) mmol/L Chloride (101-111) mmol/L Carbon Dioxide (22-32) mmol/L Anion Gap (2-11) mmol/L BUN (6-24) mg/dL Creatinine (0.51-0.95) mg/dL Est GFR ( Amer) (>60) Est GFR (Non-Af Amer) (>60) BUN/Creatinine Ratio (8-20) Glucose (70-100) mg/dL Lactic Acid 1.0 (0.5-2.0) mmol/L Calcium (8.6-10.3) mg/dL Total Bilirubin (0.2-1.0) mg/dL AST (13-39) U/L ALT (7-52) U/L Alkaline Phosphatase (34-104) U/L Troponin I (<0.04) ng/mL B-Natriuretic Peptide ( - 100) pg/mL Total Protein (6.4-8.9) g/dL Albumin (3.2-5.2) g/dL Globulin (2-4) g/dL Albumin/Globulin Ratio (1-3) Result Diagrams: 07/24/17 20:40 07/25/17 05:55 Lab Statement: Any lab studies that have been ordered have been reviewed, and results considered in the medical decision making process. - Radiology Chest XR Radiology Interpretation Completed By: Radiologist - pending official report, please see meditech. - EKG 19:28 Cardiac Rate: NL - at 65 bpm EKG Rhythm: Sinus Rhythm EKG Interpretation: No acute changes Re-Evaluation - Re-Evaluation First Eval Re-Evaluation Time: 21:34 Comment: I reviewed the lab and XR results with the pt. I discussed the admission plan with the pt. She understands and agrees. Chest Pain Course/Dx - Course Assessment/Plan: Pt is a 82 y/o female who presents with chest pain radiating to the right side of her neck and right side of her rib cage since yesterday. Pt was given one 324 mg aspirin at Urgent Care [facility]. Blood work, chest XR, EKG were obtained. I discussed pt care with Dr. Mack, hospitalist, who has agreed to admit the pt. Dx: chest pain, rule out OK. - Chest Pain Differential Diagnosis/HQI/PQRI: Acute OK, ACS, Angina, CHF, Chest Wall, Lower Respiratory Infection, Pulmonary Edema - Diagnoses Provider Diagnoses: Chest pain, Chest pain, rule out acute myocardial infarction - Provider Notifications Discussed Care Of Patient With: Helder Mack Time Discussed With Above Provider: 21:32 Instructed by Provider To: Other - I discussed pt care with Dr. Mack, hospitalist, who has agreed to admit the pt. Discharge - Sign-Out/Discharge Documenting (check all that apply): Discharge/Admit/Transfer - Admit to [facility] - Discharge Plan Condition: Stable Disposition: ADMITTED TO [facility] - Billing Disposition and Condition Condition: STABLE Disposition: [facility] The documentation as recorded by the Anthony cartwright Angela accurately reflects the service I personally performed and the decisions made by , Reinaldo Velásquez.
[2017-07-25] MEDS ORDERED: Potassium Chlor TAB* 20 MEQ TAB.ER PO ONE (13:40)
[2017-07-25] MEDS ORDERED: Dexamethasone IV* 4 MG/ML 1 ML (4 MG) IV SLOW PU ONE (14:12)
[2017-07-25 16:36] VITALS: BP 108/45
--- NOTE | 2017-07-27 04:18 | DS ---
CC: Olinda Aburto NP * DISCHARGE SUMMARY: DATE OF ADMISSION: 07/25/17 DATE OF DISCHARGE: 07/25/17 PRIMARY CARE PHYSICIAN: Olinda Aburto NP ATTENDING PHYSICIAN: Dr. Helder Mack. MY ATTENDING FOR TODAY: Dr. Aarti Parrish.* (DICTATED BY SUDHAKAR BETTENCOURT NP) HOSPITAL COURSE: This is a very pleasant 82-year-old female patient who presented after going to urgent care yesterday for complaint of some right- sided chest wall pain and also some right sided neck pain. The patient states that she woke up with the pain in the morning and got progressively worse throughout the day. She went to the urgent care to be evaluated. The patient was exacerbated by movement and mild exertion. She also has very palpable point tenderness of the supraspinal processes on the back of the neck lateralizing to the right side and also to the right chest wall and under the right axilla into the right rib cage. The patient states she has had this feeling before and it has been secondary to muscle strain; however, her excessive cardiac history, she has had cardiac stents one in 2001 and two more in 2007. However, she does state that she went to see her local ornament maker hand, that she has been following with for many years in April and her ornament maker hand at that time told her that everything was okay. However, again given her history, she was referred to the emergency department for evaluation and rule out ACS. Of significant note, the patient had an unremarkable workup. No changes to her EKG. Her EKG showed regular sinus rhythm with no ectopy. Her troponins were 0.01, 0.01, and 0.00. The patient did have some aspirin prior to her arrival, also was given morphine IV. Neither of which afforded her any relief. The patient also had a chest x-ray. Chest x-ray was also unremarkable and showed no active cardiopulmonary disease. The patient denied any shortness of breath. No precipitating symptoms. No radiation to the jaw or shoulder blades. No associated nausea, vomiting or diaphoresis. I discussed at length the patient's symptoms and because her neck has some restricted range of motion, she has difficulty turning her head looking over the right shoulder, which also elicits the pain radiating from the neck down into the chest. The patient states that she had been sleeping on lots of pillows because of her sinuses lately and she woke up kind of twisted up on pillows on the day this happened. So, I suspect, the patient probably had some neck strain while sleeping. She said she had a lot of difficulty sleeping and was very restless. It is also noted that she has a slight little bit of bruising actually on the right lateral posterior aspect of her neck, which is tender to touch. So, I would imaging that she had some rough sleeping and now has some subsequent neck strain and pain radiating down and possibly some costochondritis. The patient is very anxious to go home and she has had a negative workup. I am going to trial her on some antiinflammatory. The patient states she is not able to take ibuprofen or Aleve, but she has taken steroids in the past with no issue. I will give her 4 mg of Decadron IV, reassess her in an hour and then she wishes to be discharged home. She will be discharged on a Medrol Dosepak. She is instructed to follow up with Dr. Aburto in the next week. She already has an appointment scheduled for . She is also instructed to follow up with her ornament maker hand if she had any further changes. PHYSICAL EXAMINATION: Vital signs on the day of discharge: Blood pressure 121/ 46, heart rate 57, respiratory rate 16, temperature 97.9. She has an O2 saturation of 98% on room air. HEENT: The patient is atraumatic and normocephalic. PERRLA with nonicteric sclerae. Neck is supple, very tender area over the right lateral posterior area of the neck and some paraspinal tenderness over the cervical region. Also has a significant amount of point tenderness across the anterior right chest wall with mild palpation, also to the right rib cage. Cardiovascular: She has a positive S1 and S2. No murmurs , gallops or rubs noted. Rate and rhythm are regular. Again, she is in regular sinus rhythm on telemetry with no ectopy. Lungs are clear bilaterally to auscultation with no wheezing, rhonchi or rales. Abdomen: Soft, nontender, nondistended. Positive bowel sounds in all four quadrants. was deferred. Musculoskeletal: There was no clubbing and no cyanosis. She has +2 distal pulses palpable. She has no edema. She does ambulate with a cane and she has a steady gait with her assistive device. Neurologic: She is grossly intact, alert oriented with no focal deficits. Psychiatric: She is calm cooperative and appropriate. DIAGNOSTIC STUDIES/LAB DATA: WBC is 10.4, RBC 4.06, hemoglobin 11.9, hematocrit 34, platelets 251. Sodium 138, potassium 3.0, chloride 101, CO2 of 27, BUN 28, creatinine 1.05, glucose 126, calcium 9.4, bilirubin 0.30, AST 10, ALT 9, alk phos 84. Troponin again are negative at 0.01, 0.01 and 0.00. BNP is 39. Protein is 6.8. Albumin 4.1, globulin 2.7. DISCHARGE MEDICATIONS: Include: 1. Hydrochlorothiazide 25 mg daily. 2. Losartan 100 mg daily. 3. Amlodipine 10 mg daily. 4. Aspirin 81 mg daily. 5. Atenolol 50 mg daily. 6. Simvastatin 40 mg daily. 7. Levothyroxine 50 mcg daily. 8. Omeprazole 40 mg daily. 9. Calcium and Vitamin D supplement one tablet two times a day. 10. Cranberry extract 400 mg daily. 11. Nitroglycerin 0.4 mg as needed. 12. Methylprednisolone 4 mg in a Medrol Dosepak 6 day course. DISCHARGE DISPOSITION: The patient will be discharged to home in the care of her daughter. All questions were answered. The patient states her understanding of her medications at discharge and her followups. Again, her followups include her primary care, Ms. Aburto and her ornament maker hand as needed. The patient was discharged in stable condition. SUDHAKAR BETTENCOURT, NARINDER [id number]/CPS #: [id number]
== END 2017-07-25 18:45 | disposition home or self-care (01) ==
LOC: ED 19:17 → MEDTELE 22:32
PROVIDERS: ADMIT Hospitalist; ATTEND Internal Medicine
DX: R07.89 Other chest pain (principal); M54.2 Cervicalgia; Z88.2 Allergy status to sulfonamides; Z88.8 Allergy status to other drugs, medicaments and biological substances; I10 Essential (primary) hypertension; I25.10 Atherosclerotic heart disease of native coronary artery without angina pectoris; Z95.5 Presence of coronary angioplasty implant and graft; E78.5 Hyperlipidemia, unspecified; E03.9 Hypothyroidism, unspecified; K21.9 Gastro-esophageal reflux disease without esophagitis; Z79.899 Other long term (current) drug therapy
CPT/HCPCS: 36415; 71045; 80048; 80053; 83605; 83880; 84484; 85025; 85610; 85730; 93005; 96372; 96374; 99284; A9270-GY; G0378; J1100; J1644